=== PATIENT | male | born 1945 | race Caucasian/White ===

== ENCOUNTER 2021-03-11 16:27 | Outpatient (CLI) | payer OTHER, SELFPAY ==
[2021-03-11 16:44] LABS: Basophils Percent Auto 0.3 % (0.2-1.2); Eosinophils Absolute Auto 0.2 K/mm3 (0-0.3); Eosinophils Percent Auto 1.7 % (0-4.4); Hematocrit 44.6 % (42.0-52.0); Hemoglobin 14.9 g/dL (14.0-18.0); Immature Granulocyte Absolute 0.04 K/mm3 (0.00-0.031); Immature Granulocyte Percent A 0.4 % (0-0.5); Lymphocytes Absolute Auto 2.66 K/mm3 (0.9-3.2); Lymphocytes Percent Auto 27.1 % (18.3-44.2); Mean Corpuscular HGB Conc 33.4 g/dl (32-36); Mean Corpuscular Volume 86.9 fl (80-100); Mean Platelet Volume 10.7 fl (7.4-10.4); Monocytes Absolute Auto 0.9 K/mm3 (0.1-0.6); Neutrophils Percent Auto 61.5 % (45.5-73.1); Platelet Count Result 203 k/mm3 (150-375); Red Blood Count 5.13 M/mm3 (4.6-6.20); Red Cell Distribution Width 13.1 % (11.5-14.5); White Blood Count 9.8 K/mm3 (4.5-10.0)
[2021-03-11 16:57] LABS: Albumin Level 4.6 g/dL (3.5-5.1); Alkaline Phosphatase 131 U/L (38-126); Anion Gap 9 mmol/L (8-16); Aspartate Amino Transferase 16 U/L (17-59); Bilirubin,Total 0.8 mg/dL (0.2-1.3); Blood Urea Nitrogen 15 mg/dL (9-20); Calcium 9.8 mg/dL (8.4-10.2); Carbon Dioxide 26 mmol/L (22-30); Chloride 101 mmol/L (98-107); Estimated Glomerular Filt Rate > 60; Glucose 149 mg/dL (65-110); Lipase 100 U/L (23-300); Potassium 4.5 mmol/L (3.4-5.0); Sodium 136 mmol/L (137-145)
[2021-03-11 17:29] LABS: Alanine Aminotransferase < 6 U/L (4-50)
== END 2021-03-11 16:28 | disposition home or self-care (01) ==
LOC: ANHLAB 16:28
PROVIDERS: PCP Internal Medicine; Visit Provider Internal Medicine Gastroenterology
DX: R10.9 Unspecified abdominal pain (principal)
CPT/HCPCS: 36415; 80053; 83690; 85025

== ENCOUNTER 2021-03-22 08:39 | Outpatient (CLI) | payer OTHER, SELFPAY ==
--- NOTE | ~2021-03-22 | CT_ITS ---
EXAMINATION: CT abdomen pelvis w con INDICATION: Unspecified abdominal pain TECHNIQUE: Computed tomographic images of the abdomen and pelvis were obtained after the administrati on of 100 cc of Omnipaque 350 intravenous contrast. The dose-length product (DLP) was 1339.98 mGy-cm. Automated exposure control and iterative reconstruction technique were employed. COMPARISON: None available FINDINGS: Minimal dependent atelectasis is present in the lung bases. The heart size is normal. There is a 1.3 cm cyst in the left hepatic lobe. The spleen, pancreas, and adrenal glands are normal. A st one is present in the nondistended gallbladder. The kidneys are unremarkable. No pathologically enlar ged abdominal or pelvic lymph nodes are identified. There is no free intraperitoneal gas or evidence of bowel obstruction. There is circumferential wall thickening of the urinary bladder. Ventriculoperi toneal shunt catheter tubing courses through the anterior right abdomen and into the left midabdomen. There are small fat-containing inguinal hernias. Small umbilical hernia containing fat is also noted . There is moderate lumbar spondylosis. IMPRESSION: 1. Mild circumferential wall thickening of the urinary bladder which could reflect cystitis or chroni c outlet obstruction. 2. Cholelithiasis without evidence of cholecystitis. Reviewed, dictated and finalized at location B. IMPRESSION: 1. Mild circumferential wall thickening of the urinary bladder which could refl ect cystitis or chronic outlet obstruction. 2. Cholelithiasis without evidence of cholecystitis.
== END 2021-03-22 08:40 | disposition home or self-care (01) ==
PROVIDERS: PCP Internal Medicine; Visit Provider Internal Medicine Gastroenterology
DX: R10.9 Unspecified abdominal pain (principal); K80.20 Calculus of gallbladder without cholecystitis without obstruction
CPT/HCPCS: 74177; Q9967